=== PATIENT | female | born 1990 | race Caucasian/White ===

== ENCOUNTER 2021-11-16 16:36 | Day surgery (SDCO) | payer OTHER ==
[~2021-11-16] VITALS: Ht 172.7 cm; Wt 94.8 kg
[2021-11-16 18:56] LABS: BASOPHIL 0.3 % (0-2); EOSINOPHIL 0.2 % (0-5); HCT 41.5 % (37.0-47.0); HGB 13.9 g/dl (12.5-16.0); LYMPHOCYTE 7.1 % (15-48); MCH 30.8 pg (25.0-31.0); MCHC 33.5 g/dL (32.0-36.0); MONOCYTE 4.2 % (0-12); MPV 10.3 fL (6.0-9.5); NEUTROPHIL 87.9 % (41-80); NRBC 0; PLT 247 K/uL (150-400); RBC 4.51 M/uL (4.20-5.40); WBC 17.7 K/uL (4.0-10.5)
[2021-11-16 19:17] LABS: ALBUMIN 4.2 g/dL (3.4-5.0); BILIRUBIN - TOTAL 0.4 mg/dL (0.2-1.0); CREATININE 0.77 mg/dL (0.51-0.95); GLOBULIN (CALCULATION) 3.7 g/dL; POTASSIUM 3.7 mmol/L (3.5-5.1); TOTAL PROTEIN 7.9 g/dL (6.4-8.2)
[2021-11-16 20:24] LABS: MONOSPOT (MONONUCLEOSIS) NEGATIVE (NEGATIVE)
[2021-11-16 20:33] LABS: BILIRUBIN NEGATIVE (NEGATIVE); BLOOD TRACE-INTACT Ery/uL (NEGATIVE); COLOR YELLOW (YELLOW); GLUCOSE (U) NORMAL (NORMAL); LEUKOCYTES TRACE Leu/uL (NEGATIVE); NITRITE NEGATIVE (NEGATIVE); PROTEIN NEGATIVE (NEGATIVE); SPECIFIC GRAVITY 1.015 (1.001-1.030); UROBILINOGEN 0.2 mg/dL (0.2-1.0); pH 6.5 (5.0-9.0)
[2021-11-16 20:37] LABS: LACTIC ACID 1.1 mmol/L (0.4-1.9)
[2021-11-16 20:39] LABS: BACTERIA TRACE; CLARITY SLIGHTLY HAZY (CLEAR)
[2021-11-16 20:40] LABS: MUCOUS TRACE
[2021-11-17 03:50] LABS: CORONAVIRUS 2019 SARS-COV-2 NEGATIVE (NEGATIVE); INFLUENZA A NAA NEGATIVE (NEGATIVE)
[2021-11-17] MEDS ORDERED: ALLEGRA ALLERGY60 MG PO (04:05)
[2021-11-17] MEDS ORDERED: FLONASE ALLER15.8 ML (04:06)
[2021-11-17 06:22] LABS: BASOPHIL 0.3 % (0-2); EOSINOPHIL 0.5 % (0-5); HGB 12.7 g/dl (12.5-16.0); LYMPHOCYTE 9.4 % (15-48); MCH 30.8 pg (25.0-31.0); MCHC 32.6 g/dL (32.0-36.0); MCV 94.4 fL (78.0-100.0); MONOCYTE 5.1 % (0-12); MPV 10.4 fL (6.0-9.5); NEUTROPHIL 84.2 % (41-80); NRBC 0; PLT 216 K/uL (150-400); RBC 4.13 M/uL (4.20-5.40); RDW 13.2 % (11.5-14.0); WBC 14.8 K/uL (4.0-10.5)
[2021-11-17 06:39] LABS: ALBUMIN 3.6 g/dL (3.4-5.0); BILIRUBIN - TOTAL 0.4 mg/dL (0.2-1.0); BUN/CREAT RATIO (CALC) 10.3 RATIO; CREATININE 0.68 mg/dL (0.51-0.95); GLOBULIN (CALCULATION) 3.5 g/dL; POTASSIUM 3.6 mmol/L (3.5-5.1); TOTAL PROTEIN 7.1 g/dL (6.4-8.2)
[2021-11-17] MEDS ORDERED: MACROBID100 MG PO (13:21)
--- NOTE | 2021-11-17 16:01 | NUR ---
11/17/21 Patient lives at home with her spouse. She is independent and employed. She reports to be able to meet her financial obligations.
[2021-11-17 18:30] LABS: CORONAVIRUS 229E NOT DETECTED (NOT DETECT); CORONAVIRUS HKU1 NOT DETECTED (NOT DETECT); CORONAVIRUS NL63 NOT DETECTED (NOT DETECT); CORONAVIRUS OC43 NOT DETECTED (NOT DETECT); HUMAN METAPNEUMO NOT DETECTED (NOT DETECT)
[2021-11-17 18:31] LABS: B. PERTUSSIS DNA NOT DETECTED (NOT DETECT); CHLAMYDOPHILA PNEUMON DNA PCR NOT DETECTED (NOT DETECT); CORONAVIRUS 2019 PCR NOT DETECTED (NOT DETECTD); INFLUENZA A NOT DETECTED (NOT DETECT); INFLUENZA A 2009 H1N1 NOT DETECTED (NOT DETECT); INFLUENZA A H1 NOT DETECTED (NOT DETECT); INFLUENZA A H3 NOT DETECTED (NOT DETECT); INFLUENZA B NOT DETECTED (NOT DETECT); MYCOPLASMA PNEUMONIAE NOT DETECTED (NOT DETECT); PARAINFLUENZA 1 NOT DETECTED (NOT DETECT); PARAINFLUENZA 2 NOT DETECTED (NOT DETECT); PARAINFLUENZA 3 NOT DETETED (NOT DETECT); PARAINFLUENZA 4 NOT DETECTED (NOT DETECT); RESPIRATORY SYNCYTIAL VIRUS NOT DETECTED (NOT DETECT)
== END 2021-11-17 14:16 | disposition home or self-care (01) ==
LOC: FER 16:36 → FMS 11-17 02:53
PROVIDERS: Internal Medicine; Nurse Practitioner; Physician Assistant; ADMIT Family Medicine
DX: N39.0 Urinary tract infection, site not specified (principal); Z20.822 Contact with and (suspected) exposure to COVID-19; F17.200 Nicotine dependence, unspecified, uncomplicated
CPT/HCPCS: 36415; 71045; 80053; 81001; 83036; 83605; 83615; 84145; 85025; 86038; 86140; 86308; 86431; 87040; 87088; 87880; G0378; J2543; J7030; J7120; U0002